=== PATIENT | female | born 1985 | race Caucasian/White ===

== ENCOUNTER 2025-07-14 10:40 | Outpatient (CLI) | payer OTHER, SELFPAY ==
--- NOTE | 2025-07-14 | MM_ITS ---
WS: [id number] BILATERAL 3D TOMOSYNTHESIS DIGITAL DIAGNOSTIC MAMMOGRAPHY WITH CAD CLINICAL INFORMATION: MASS OF UPPER OUTER RT BREAST HISTORY: Pain RIGHT breast COMPARISON: Baseline TECHNIQUE: Bilateral CC, MLO, and ML views. FINDINGS: Scattered fibroglandular densities bilaterally. Palpable marker posterior depth RIGHT breast in the chest wall. Ultrasound of this area is pending. Intramammary lymph node outer RIGHT breast. Several nodular densities LEFT breast upper outer quadrant, 12 o'clock position, and near the nipple anteriorly. Ultrasound of these areas is pending. ULTRASOUND BREAST BILATERAL TECHNIQUE: Ultrasound bilateral breast focused area of concern. CLINICAL INFORMATION: MASS OF UPPER OUTER RT BREAST FINDINGS: RIGHT BREAST: No suspicious ultrasound normality in the RIGHT breast posterior depth in the area of pain. Normal underlying parenchymal tissue. Ultrasound is performed at the 12 o'clock position 12 cm from the nipple LEFT BREAST: Ultrasound upper outer LEFT breast and 12 o'clock position near the nipple. At the 12 o'clock position subareolar 1 cm from the nipple is an ovoid solid nodule with internal cystic change measuring approximately 2.3 x 2.6 x 1.2 cm. This may represent a fibroadenoma in a patient this age but technically indeterminate and recommend further evaluation with ultrasound-guided biopsy. This appears to correspond to the far anterior nodule seen on mammography. Incidental lymph node at the 1 o'clock position 4 cm from the nipple upper outer quadrant. MM/MM diag BI tomosynthesis [id number] IMPRESSION: DENSITY: There are scattered areas of fibroglandular density. BI-RADS: 4 - Suspicious Finding - Biopsy Should Be Considered. FOLLOW UP: US Guided Biopsy Recommended Recommend ultrasound-guided biopsy of the ovoid nodule at the 12 o'clock positi on 1 cm from the nipple.
--- NOTE | 2025-07-14 10:51 | US_ITS ---
WS: [id number] BILATERAL 3D TOMOSYNTHESIS DIGITAL DIAGNOSTIC MAMMOGRAPHY WITH CAD CLINICAL INFORMATION: MASS OF UPPER OUTER RT BREAST HISTORY: Pain RIGHT breast COMPARISON: Baseline TECHNIQUE: Bilateral CC, MLO, and ML views. FINDINGS: Scattered fibroglandular densities bilaterally. Palpable marker posterior depth RIGHT breast in the chest wall. Ultrasound of this area is pending. Intramammary lymph node outer RIGHT breast. Several nodular densities LEFT breast upper outer quadrant, 12 o'clock position, and near the nipple anteriorly. Ultrasound of these areas is pending. ULTRASOUND BREAST BILATERAL TECHNIQUE: Ultrasound bilateral breast focused area of concern. CLINICAL INFORMATION: MASS OF UPPER OUTER RT BREAST FINDINGS: RIGHT BREAST: No suspicious ultrasound normality in the RIGHT breast posterior depth in the area of pain. Normal underlying parenchymal tissue. Ultrasound is performed at the 12 o'clock position 12 cm from the nipple LEFT BREAST: Ultrasound upper outer LEFT breast and 12 o'clock position near the nipple. At the 12 o'clock position subareolar 1 cm from the nipple is an ovoid solid nodule with internal cystic change measuring approximately 2.3 x 2.6 x 1.2 cm. This may represent a fibroadenoma in a patient this age but technically indeterminate and recommend further evaluation with ultrasound-guided biopsy. This appears to correspond to the far anterior nodule seen on mammography. Incidental lymph node at the 1 o'clock position 4 cm from the nipple upper outer quadrant. US/US breast BI limited* [id number] IMPRESSION: DENSITY: There are scattered areas of fibroglandular density. BI-RADS: 4 - Suspicious Finding - Biopsy Should Be Considered. FOLLOW UP: US Guided Biopsy Recommended Recommend ultrasound-guided biopsy of the ovoid nodule at the 12 o'clock positi on 1 cm from the nipple.
== END 2025-07-14 10:41 | disposition home or self-care (01) ==
LOC: RAD 10:42
PROVIDERS: Family Provider Family Medicine; PCP Family Medicine; Visit Provider Family Medicine
DX: N63.11 Unspecified lump in the right breast, upper outer quadrant (principal); R92.323 Mammographic fibroglandular density, bilateral breasts; N63.21 Unspecified lump in the left breast, upper outer quadrant
CPT/HCPCS: 76642; 77062; G0279

== ENCOUNTER 2025-08-03 12:56 | Outpatient (CLI) | payer OTHER, SELFPAY ==
--- NOTE | 2025-08-03 13:02 | US_ITS ---
WS: [id number] ULTRASOUND-GUIDED LEFT BREAST BIOPSY CLINICAL INFORMATION: ABNORMAL MAMMO FINDINGS: The procedure including risks, benefits, and complications were discussed with the patient who agreed to proceed. Using sterile technique patient was prepped and draped in the usual sterile fashion. After 1% lidocaine utilizing real-time ultrasound guidance 5 14-gauge cores were obtained of the LEFT breast lesion at the 12:00 o'clock position 1 cm from the nipple. Subsequently a titanium clip was placed in the biopsy cavity. No immediate complications. US/[id number] IMPRESSION: 1. Uncomplicated ultrasound-guided LEFT breast biopsy. 2. The pathology demonstrates stromal changes with focal ductal ectasia sugges ting PASH. No atypia or malignancy. 3. Findings are benign. Recommend continued surveillance versus surgical excis ion especially if increasing in size or patient pain. DENSITY: The breasts are heterogeneously dense, which may obscure small masses. BI-RADS: 2 - Benign FOLLOW UP: See Report Recommend follow-up LEFT breast diagnostic mammogram and ultrasound in 6 months versus surgical excision. See discussion above.
== END 2025-08-03 12:57 | disposition home or self-care (01) ==
PROVIDERS: PCP Physician Assistant; Visit Provider Nurse Practitioner Family
DX: R92.8 Other abnormal and inconclusive findings on diagnostic imaging of breast (principal); N63.25 Unspecified lump in the left breast, overlapping quadrants; N60.42 Mammary duct ectasia of left breast
CPT/HCPCS: 19083; 88305